=== PATIENT | male | born 1960 | race Native Hawaiian/Other Pacific Islander ===

== ENCOUNTER 2021-10-02 18:16 | Inpatient (IN) | payer OTHER ==
[~2021-10-02] VITALS: Ht 154.9 cm; Wt 75.4 kg
[2021-10-02 20:53] VITALS: BP 123/85; TEMP 97.78; BMI 30.4
[2021-10-02 23:50] VITALS: BP 142/76; TEMP 98.1
[2021-10-03 03:47] VITALS: BP 142/79; TEMP 98.2
[2021-10-03 05:23] LABS: PLATELET COUNT 276 K/uL (142-355)
[2021-10-03 05:46] LABS: POTASSIUM 4.7 mmol/L (3.6-5.2)
[2021-10-03 07:21] VITALS: BP 133/70
[2021-10-03 11:37] VITALS: BP 140/71; TEMP 98.4
[2021-10-03 15:54] VITALS: BP 118/63; TEMP 98.2
[2021-10-03 19:49] VITALS: BP 148/85; TEMP 98.8
[2021-10-04] VITALS (7 sets, daily range): BP systolic 129–149; BP diastolic 58–96; TEMP 97.9–98.9
[2021-10-04] MEDS ORDERED: ROWEEPRA500 MG PO (11:00)
[2021-10-04] MEDS ORDERED: METF500T PO (11:01)
[2021-10-04] MEDS ORDERED: OLANZAPINE5 M1 PO (11:03)
[2021-10-04] MEDS ORDERED: FLUOXETINE20 MG PO (11:05)
[2021-10-04] MEDS ORDERED: ELIQUIS5 MG PO (11:06)
[2021-10-05] VITALS: BP 135/80; TEMP 98
[2021-10-05 04:00] VITALS: BP 149/82; TEMP 97.6
[2021-10-05 08:00] VITALS: BP 134/77; TEMP 98.1
[2021-10-05] MEDS ORDERED: PRED20TA27 PO (09:28)
[2021-10-05] MEDS ORDERED: AZIT250T3 PO (09:29)
[2021-10-05] MEDS ORDERED: PANTOPRAZOLE 40MG TA PO (09:33)
[2021-10-05] MEDS ORDERED: NICODERM CQ 21MG/HR TOP (09:33)
[2021-10-05 10:00] VITALS: BP 148/81; TEMP 98.1
[2021-10-05 12:33] LABS: POTASSIUM 5.1 mmol/L (3.6-5.2)
[2021-10-05 13:12] LABS: PLATELET COUNT 242 K/uL (142-355)
[2021-10-05 15:34] VITALS: BP 143/70; TEMP 98; Ht 154.9 cm; Wt 75.4 kg
== END 2021-10-05 12:15 | disposition other institution (70) | DRG 189 ==
LOC: MED/SURG 18:16
PROVIDERS: ADMIT Internal Medicine Endocrinology, Diabetes & Metabolism; ATTEND Internal Medicine Endocrinology, Diabetes & Metabolism
DX: J96.21 Acute and chronic respiratory failure with hypoxia (principal); G92.8 Other toxic encephalopathy; J44.1 Chronic obstructive pulmonary disease with (acute) exacerbation; G40.802 Other epilepsy, not intractable, without status epilepticus; I10 Essential (primary) hypertension; E78.49 Other hyperlipidemia; R41.82 Altered mental status, unspecified; F41.9 Anxiety disorder, unspecified; F22 Delusional disorders; E11.9 Type 2 diabetes mellitus without complications; E66.8 Other obesity
CPT/HCPCS: 36415; 36600; 80048; 80053; 82805; 85027; 87635; 94640; 94660; 94664; 94760; J0456; J0696; J1200; J1630; J1650; J1815; J2060; J2920; J3490; U0003

== ENCOUNTER 2021-12-05 14:16 | Emergency (ER) | payer OTHER ==
[~2021-12-05] VITALS: Ht 154.9 cm; Wt 93.0 kg
[2021-12-05 14:16] VITALS: BP 205/96; TEMP 98.7
[~2021-12-05 14:16] MED LIST: AZIT250T3 PO; ELIQUIS5 MG PO; FLUOXETINE20 MG PO; METF500T PO; NICODERM CQ 21MG/HR TOP; OLANZAPINE5 M1 PO; PANTOPRAZOLE 40MG TA PO; PRED20TA27 PO; ROWEEPRA500 MG PO
[2021-12-05 14:44] LABS: PLATELET COUNT 300 K/uL (142-355)
[2021-12-05 14:51] LABS: POTASSIUM 3.8 mmol/L (3.6-5.2)
[2021-12-05] MEDS ORDERED: DIVA250T2 PO (18:35)
[2021-12-05] MEDS ORDERED: ZIPR20IN IM (18:38)
== END 2021-12-05 15:40 | disposition still patient (30) ==
LOC: ED 14:16
PROVIDERS: Emergency Medicine
DX: F25.8 Other schizoaffective disorders (principal); R45.1 Restlessness and agitation; J44.9 Chronic obstructive pulmonary disease, unspecified; I10 Essential (primary) hypertension; F17.210 Nicotine dependence, cigarettes, uncomplicated; Z11.52 Encounter for screening for COVID-19; Z04.6 Encounter for general psychiatric examination, requested by authority
CPT/HCPCS: 80053; 85027; 87635; 99283; U0003